=== PATIENT | female | born 1985 | race Caucasian/White ===

== ENCOUNTER 2020-10-16 22:56 | Inpatient (IN) | payer OTHER ==
[~2020-10-16] VITALS: Ht 154.9 cm; Wt 65.0 kg
[2020-10-17 00:12] LABS: BASOPHILS ABSOLUTE AUTO 0.03 K/mm3 (0.00-0.23); BASOPHILS PERCENT AUTO 0 % (0-2); EOSINOPHILS ABSOLUTE AUTO 0.07 K/mm3 (0.00-0.68); EOSINOPHILS PERCENT AUTO 1 % (0-6); Hematocrit 33.9 % (33.0-51.0); IMMATURE GRAN ABSOLUTE AUTO 0.03 K/mm3 (0.00-0.10); IMMATURE GRAN PERCENT AUTO 0 % (0-1); LYMPHOCYTES ABSOLUTE AUTO 1.91 K/mm3 (0.84-5.20); LYMPHOCYTES PERCENT AUTO 21 % (21-46); MONOCYTES ABSOLUTE AUTO 0.58 K/mm3 (0.16-1.47); MONOCYTES PERCENT AUTO 7 % (4-13); Mean Corpuscular HGB 27.4 pg (26.0-34.0); Mean Corpuscular HGB Conc 32.4 g/dL (31.5-36.5); Mean Corpuscular Volume 85 fL (80-100); Mean Platelet Volume 10.1 fL (9.1-12.4); NEUTROPHILS ABSOLUTE AUTO 6.36 K/mm3 (1.96-9.15); NEUTROPHILS PERCENT AUTO 71 % (41-73); Platelet Count 244 K/mm3 (150-400); RDW Coefficient Variation 13.2 % (11.7-14.2); RDW Standard Deviation 40.6 fL (35.1-46.3); Red Blood Cell Count 4.01 M/mm3 (3.80-5.20); White Blood Cell Count 8.98 K/mm3 (4.00-11.30)
[2020-10-17 00:53] LABS: Influenza A, PCR Negative (NEGATIVE); Influenza B, PCR Negative (NEGATIVE); Resp Syncytial Virus, PCR Negative (NEGATIVE); SARS-Cov-2 (COVID-19) PCR, MMC Negative (NEGATIVE)
--- NOTE | 2020-10-17 14:42 | NUR ---
RN/LC ROUNDED TO HELP W/ . PT IS EXPERIENCED MOM. INSTRUCT/DEMO WIDENING LATCH, CORRECT POSITIONING, AND NIPPLE SHAPE AFTER FEEDS. INSTRUCTED PT ON FREQUENCY OF FEEDS AND SUPPLY AND DEMAND OF BREASTMILK. NB SOMEWHAT SLEEPY, DID LATCH BREIFLY AND AND WAS FEEDING WELL DURING THIS TIME, PT DID NOT SAY SHE HAD PAIN, STATES CURRENT LATCH "FEELS BETTER". PT IS LOVING W/ NB, DENIES ANY FURTHER QUESTIONS OR CONCERNS. FURTHER SUPPORT OFFERED IF PT DESIRES.
--- NOTE | 2020-10-18 08:45 | NUR ---
RN/LC ROUNDED TO HELP W/ . PT HAD BEEN GIVEN A SHIELD THROUGHOUT THE NIGHT AND IS CURRENTLY USING IT. PT STATES WAS PAINFUL AND THE SHIELD IS HELPFUL. RN TALKED W/ PT ABOUT LATCH ON PAIN AND TYPICAL DURATION. TALKED W/ PT ABOUT SHIELD BEING A LESS STIMULATING, AND ENCOURAGED PT TO PUMP AFTER FEEDS TO HELP BRING IN MILK SUPPLY. SHE CAN PUMP AFTER FEEDS MUCH OR LITTLE SHE WOULD LIKE. FURTHER LC OFFERED TO PT IN [facility].
[2020-10-18] MEDS ORDERED: NEWMAN'S OINTMENT TOP (09:08)
[2020-10-18 21:08] LABS: HBSAG SCREEN Negative (Negative)
== END 2020-10-18 13:25 | disposition home or self-care (01) | DRG 807 ==
LOC: OBS 22:56 → BC 23:04 → OBS 23:22 → BC 23:28
PROVIDERS: Family Medicine; ADMIT Obstetrics & Gynecology
PROC: 10E0XZZ Delivery of Products of Conception, External Approach (ICD-10-PCS; principal; 2020-10-17)
PROC: 0KQM0ZZ Repair Perineum Muscle, Open Approach (ICD-10-PCS; 2020-10-17)
PROC: 3E0R3BZ Introduction of Anesthetic Agent into Spinal Canal, Percutaneous Approach (ICD-10-PCS; 2020-10-17)
PROC: 00HU33Z Insertion of Infusion Device into Spinal Canal, Percutaneous Approach (ICD-10-PCS; 2020-10-17)
DX: O70.1 Second degree perineal laceration during delivery (principal); Z37.0 Single live birth; Z3A.40 40 weeks gestation of pregnancy; Z20.822 Contact with and (suspected) exposure to COVID-19
CPT/HCPCS: 0241U; 36415; 51702; 85025; 86762; 86850; 86900; 86901; 87340; A9270; J1885; J2001; J2590; J7120

== ENCOUNTER → 2022-01-08 | Outpatient (CLI) | payer OTHER ==
[~2022-01-08] MED LIST: NEWMAN'S OINTMENT TOP
[2022-01-09 16:11] LABS: HPV 16 Negative (Negative); HPV 18 Negative (Negative); HPV OTHER HR TYPES Negative (Negative)
== END | disposition home or self-care (01) ==
LOC: LAB SHORT 11:47 → LAB 11:47
PROVIDERS: Obstetrics & Gynecology
DX: Z01.419 Encounter for gynecological examination (general) (routine) without abnormal findings (principal)
CPT/HCPCS: 87624; G0123

== ENCOUNTER → 2022-09-26 | Outpatient (CLI) | payer OTHER | END | disposition home or self-care (01) | LOC: LAB SHORT 10:50 → PLD 10:50 | DX: L81.8 Other specified disorders of pigmentation (principal) | CPT/HCPCS: 88305 ==

== ENCOUNTER → 2025-04-14 | Outpatient (CLI) | payer OTHER | LOC: LAB 10:17 → LAB SHORT 10:17 | DX: O09.529 Supervision of elderly multigravida, unspecified trimester (principal) | CPT/HCPCS: 87081; 87150 ==

== ENCOUNTER 2025-04-28 15:19 | Inpatient (IN) | payer OTHER ==
[~2025-04-28] VITALS: Ht 154.9 cm; Wt 72.3 kg
[2025-04-28] VITALS (32 sets, daily range): BP systolic 104–125; BP diastolic 54–77
[2025-04-28] MEDS ORDERED: Ondansetron HCl 2 MG / ML 2ML Vial IV PRN (15:45)
[2025-04-28] MEDS ORDERED: Tranexamic Acid 100 ML IV SCH (15:45)
[2025-04-28] MEDS ORDERED: Carboprost Tromethamine 250 MCG/ML 1ML Amp IM PRN ×2 (15:45→16:35)
[2025-04-28] MEDS ORDERED: OXYTOCIN/RINGER'S LACTATE 500 ML IV PRN (15:45)
[2025-04-28] MEDS ORDERED: Methylergonovine Maleate 0.2MG / ML 1ML Amp IM PRN ×2 (15:45→16:30)
[2025-04-28] MEDS ORDERED: Oxytocin 10 Unit / ML Vial IM PRN (15:45)
[2025-04-28] MEDS ORDERED: Witch Hazel/Glycerin PADS TOP PRN (16:35)
[2025-04-28] MEDS ORDERED: Benzocaine Topical Anesthetic Spray 60GM TOP PRN (16:35)
[2025-04-28] MEDS ORDERED: Oxytocin 10 Unit / ML Vial IM ONE ×2 (16:35→21:01)
[2025-04-28] MEDS ORDERED: SERT100 PO (16:57)
[2025-04-28] MEDS ORDERED: BUPR150ER PO (16:58)
[2025-04-28] MEDS ORDERED: IRON FOLATE-F1 EACH PO (16:58)
[2025-04-28] MEDS ORDERED: PRENATAL TABLE1 EAC2 PO (16:58)
[2025-04-28] MEDS ORDERED: VITAMIN D5000 UNIT PO (16:58)
[2025-04-28] MEDS ORDERED: Misc. Inhaler INH PRN (17:05)
[2025-04-28] MEDS ORDERED: Ondansetron 4 MG SoluTab MM PRN (18:10)
[2025-04-28 18:18] LABS: BASOPHILS ABSOLUTE AUTO 0.05 K/mm3 (0.00-0.23); BASOPHILS PERCENT AUTO 0 % (0-2); EOSINOPHILS ABSOLUTE AUTO 0.04 K/mm3 (0.00-0.68); EOSINOPHILS PERCENT AUTO 0 % (0-6); Hematocrit 37.7 % (33.0-51.0); Hemoglobin 12.9 g/dL (11.5-16.0); IMMATURE GRAN ABSOLUTE AUTO 0.06 K/mm3 (0.00-0.10); IMMATURE GRAN PERCENT AUTO 1 % (0-1); LYMPHOCYTES ABSOLUTE AUTO 1.24 K/mm3 (0.84-5.20); LYMPHOCYTES PERCENT AUTO 10 % (21-46); MONOCYTES ABSOLUTE AUTO 0.40 K/mm3 (0.16-1.47); MONOCYTES PERCENT AUTO 3 % (4-13); Mean Corpuscular HGB Conc 34.2 g/dL (31.5-36.5); Mean Corpuscular Volume 90 fL (80-100); NEUTROPHILS ABSOLUTE AUTO 10.67 K/mm3 (1.96-9.15); NEUTROPHILS PERCENT AUTO 86 % (41-73); NRBC ABSOLUTE 0.00 K/mm3 (0.00-0.02); NRBC Auto 0.0 /100 WBC (0.0-0.2); Platelet Count 199 K/mm3 (150-400); RDW Coefficient Variation 13.4 % (11.7-14.2); RDW Standard Deviation 44.4 fL (35.1-46.3)
[2025-04-28] MEDS ORDERED: Methylergonovine Maleate 0.2MG / ML 1ML Amp IM SCH (19:50)
[2025-04-28] MEDS ORDERED: Carboprost Tromethamine 250 MCG/ML 1ML Amp IM SCH (19:50)
[2025-04-28] MEDS ORDERED: FentaNYL Citrate 50 MCG/ML 2 ML Injection ONE (19:54)
[2025-04-28 20:18] LABS: Hematocrit 34.2 % (33.0-51.0); Hemoglobin 12.1 g/dL (11.5-16.0); Mean Corpuscular HGB Conc 35.4 g/dL (31.5-36.5); Mean Corpuscular Volume 89 fL (80-100); NRBC ABSOLUTE 0.00 K/mm3 (0.00-0.02); NRBC Auto 0.0 /100 WBC (0.0-0.2); Platelet Count 184 K/mm3 (150-400); RDW Coefficient Variation 13.5 % (11.7-14.2); RDW Standard Deviation 44.0 fL (35.1-46.3)
[2025-04-28] MEDS ORDERED: Methylergonovine Maleate 0.2MG / ML 1ML Amp IM ONE (21:01)
[2025-04-28 21:09] LABS: Fibrinogen 289.0 mg/dL (170-430); Prothrombin Time Results 10.3 Sec (9.7-11.5)
[2025-04-28 22:57] LABS: Hematocrit 33.3 % (33.0-51.0); Hemoglobin 11.7 g/dL (11.5-16.0); Mean Corpuscular HGB Conc 35.1 g/dL (31.5-36.5); Mean Corpuscular Volume 90 fL (80-100); NRBC ABSOLUTE 0.00 K/mm3 (0.00-0.02); NRBC Auto 0.0 /100 WBC (0.0-0.2); Platelet Count 171 K/mm3 (150-400); RDW Coefficient Variation 13.5 % (11.7-14.2); RDW Standard Deviation 44.0 fL (35.1-46.3)
[2025-04-28 23:12] LABS: Fibrinogen 228.0 mg/dL (170-430); Prothrombin Time Results 10.8 Sec (9.7-11.5)
[2025-04-28] MEDS ORDERED: Ketorolac Tromethamine 30mg Vial IV PRN (23:30)
[2025-04-29] VITALS (9 sets, daily range): BP systolic 103–123; BP diastolic 50–61
[2025-04-29 06:20] LABS: Hematocrit 32.4 % (33.0-51.0); Hemoglobin 11.0 g/dL (11.5-16.0); Mean Corpuscular HGB Conc 34.0 g/dL (31.5-36.5); Mean Corpuscular Volume 91 fL (80-100); NRBC ABSOLUTE 0.00 K/mm3 (0.00-0.02); NRBC Auto 0.0 /100 WBC (0.0-0.2); Platelet Count 173 K/mm3 (150-400); RDW Coefficient Variation 13.5 % (11.7-14.2); RDW Standard Deviation 44.8 fL (35.1-46.3)
[2025-04-29] MEDS ORDERED: Prenatal Vit/FE Fumarate/FA 1 Tab PO SCH (09:00)
[2025-04-29] MEDS ORDERED: FentaNYL Citrate 50 MCG/ML 2 ML Injection IV PRN (10:50)
== END 2025-04-29 18:30 | disposition home or self-care (01) | DRG 806 ==
LOC: BC 15:19 → OBS 15:19 → BC 15:28
PROVIDERS: ADMIT Obstetrics & Gynecology
PROC: 10E0XZZ Delivery of Products of Conception, External Approach (ICD-10-PCS; principal; 2025-04-28)
PROC: 0KQM0ZZ Repair Perineum Muscle, Open Approach (ICD-10-PCS; 2025-04-28)
PROC: 4A1HXCZ Monitoring of Products of Conception, Cardiac Rate, External Approach (ICD-10-PCS; 2025-04-28)
DX: O99.344 Other mental disorders complicating childbirth (principal); O72.2 Delayed and secondary postpartum hemorrhage; Z37.0 Single live birth; F41.8 Other specified anxiety disorders; Z3A.39 39 weeks gestation of pregnancy; O99.52 Diseases of the respiratory system complicating childbirth; O69.81X0 Labor and delivery complicated by cord around neck, without compression, not applicable or unspecified; O70.1 Second degree perineal laceration during delivery; Z79.82 Long term (current) use of aspirin; Z79.51 Long term (current) use of inhaled steroids; Z88.8 Allergy status to other drugs, medicaments and biological substances; Z88.1 Allergy status to other antibiotic agents; O35.8XX0 Maternal care for other (suspected) fetal abnormality and damage, not applicable or unspecified; J45.909 Unspecified asthma, uncomplicated
CPT/HCPCS: 36415; 51702; 85025; 85027; 85384; 85610; 85730; 86850; 86900; 86901; 86923; A9270; J1885; J2210; J2405; J2590; J7120